=== PATIENT | female | born 1985 | race Two or more races ===

== ENCOUNTER 2023-01-30 08:01 | Outpatient (CLI) | payer OTHER ==
[~2023-01-30 08:01] MED LIST: PRENATABS FA T1 EACH PO
== END 2023-01-30 08:51 | disposition home or self-care (01) ==
LOC: PRENATAL 08:01
PROVIDERS: ATTEND Obstetrics & Gynecology Maternal & Fetal Medicine
DX: O26.879 Cervical shortening, unspecified trimester (principal); O09.529 Supervision of elderly multigravida, unspecified trimester; Z14.8 Genetic carrier of other disease; O28.1 Abnormal biochemical finding on antenatal screening of mother; Z3A.22 22 weeks gestation of pregnancy